=== PATIENT | female | born 1985 | race Caucasian/White ===

== ENCOUNTER 2016-03-12 06:57 | Emergency (ER) | payer SELFPAY ==
[2016-03-12 07:21] VITALS: BP 123/72; PULSE 89; TEMP 98
[2016-03-12 07:24] VITALS: BMI 29.2
[2016-03-12] MEDS ORDERED: AMOXICILLIN 500 MG CAP PO ONE (07:44)
--- NOTE | 2016-03-12 07:47 | EDPRACDOC ---
- General Information Chief Complaint: Earache Stated Complaint: EARACHE Time Seen by Provider: 03/12/16 07:41 Information Source: Patient Mode of Arrival: Car Home Medications: Home Medications Sulfamethoxazole/Trimethoprim [Bactrim Ds Tablet] 1 tab PO BID #14 tab 01/14/16 Tramadol HCl [Ultram] 50 mg PO Q6H #14 tab 01/14/16 Amoxicillin [Amoxil] 500 mg PO TID #30 cap 03/12/16 Allergies/Adverse Reactions: Allergies Allergy/AdvReac Type Severity Reaction Status Date / Time No Known Allergies Allergy Verified 03/12/16 07:20 - History of Present Illness Onset: 3 weeks HPI: PT PRESENTS WITH LEFT EARACHE FOR THE LAST THREE WEEKS. WORSE TODAY. AWOKE WITH SOME FLUID DRAINING FROM LEFT EAR. Location: left ear Recently Treated Ear Infection: Reports: No Pain Severity: Reports: Moderate Associated Signs & Symptoms: Denies: Sore Throat ED Past Medical History - History Reviewed Yes Nurses notes reviewed and agree except as marked - Patient Medical History Psychological History: Denies: Depression Systemic History: Denies: Cancer Surgical History: Reports: Tonsillectomy/Adnoidectomy. Denies: Hysterectomy - Social Medical History Smoking Status: Heavy tobacco smoker (5 or more cigarettes/day or daily pipe/ cigar) Lives With: Family Lives In: Home EDM Review of Systems - Review of Systems ROS Negative Except as Marked: Yes All systems reviewed and were negative except as marked Ears: Drainage (LEFT), Pain (LEFT) - Physical Exam Constitutional: Alert Oriented to: Time, Person, Place Last recorded Vital Signs: Last Vital Signs Temp 98 F 03/12/16 07:20 Pulse 89 03/12/16 07:20 Resp 18 03/12/16 07:20 BP 123/72 03/12/16 07:20 Pulse Ox 98 03/12/16 07:20 Oxygen Pulse Oxygen Saturation 98 O2 Device Room Air Oxygen Flow Rate Fraction of Inspired Oxygen ( FIO2) - HEENT Head: negative: Deformity, Laceration Eye Exam: negative: Conjunctival Injection, Pale Conjunctiva Oropharynx: negative: Membranes Dry Tympanic Membrane: Perforated (LEFT), Redness (LEFT) ENT EAC: Normal TMJ: Normal Nose: negative: Congestion, Discharge Neck: negative: Limited ROM - Integumentary Skin: Warm, Dry - Neurologic Memory Impaired: Normal Motor Function: Normal Mood Description: Anxious, Appropriate Thought: Coherent Perception: Normal Decision Time to Discharge: 07:46 - Departure Yes I personally saw and evaluated the patient. Disposition: Home Condition: Stable Final Diagnosis: Otitis media Instructions: Otitis Media (ED) Education/Counseling Given To: Patient Education/Counseling Given Regarding: None, Diagnosis, Treatment, Prognosis, Follow Up Referrals: Ben Perea MD [Primary Care Provider] - Call for Appointment Prescriptions: Amoxicillin [Amoxil] 500 mg PO TID #30 cap Additional Instructions: MOTRIN 600 MG EVERY 6 HOURS FOR PAIN CONTROL.
== END 2016-03-12 08:02 | disposition home or self-care (01) ==
LOC: ED 06:57
DX: H66.90 Otitis media, unspecified, unspecified ear (principal)
CPT/HCPCS: 99282; J3490